=== PATIENT | male | born 1975 | race Caucasian/White ===

== ENCOUNTER 2017-09-11 19:59 | Emergency (ER) | payer BC, MEDICAID, OTHER ==
[2017-09-11 23:03] LABS: ABSOLUTE BASOPHILS # (AUTO) 0.1 10^3/uL (0.0-0.2); ABSOLUTE EOSINOPHILS # (AUTO) 0.1 10^3/uL (0.0-0.6); ABSOLUTE LYMPHOCYTES (AUTO) 3.4 10^3/uL (0.5-4.7); ABSOLUTE MONOCYTES (AUTO) 0.9 10^3/uL (0.1-1.4); ABSOLUTE NEUT (AUTO) 5.6 10^3/uL (1.7-8.2); BASOPHILS % (AUTO) 0.8 % (0-2); EOSINOPHILS % (AUTO) 0.9 % (0-6); HEMATOCRIT 47.5 % (37.9-51.0); HEMOGLOBIN 16.5 g/dL (13.5-17.0); LYMPHOCYTES % (AUTO) 34.2 % (13-45); MEAN CORPUSCULAR HEMOGLOBIN 33.7 pg (27.0-33.4); MEAN CORPUSCULAR HGB CONC 34.9 g/dL (32.0-36.0); MEAN CORPUSCULAR VOLUME 97 fl (80-97); MONOCYTES % (AUTO) 8.8 % (3-13); RED BLOOD COUNT 4.91 10^6/uL (4.35-5.55); RED CELL DISTRIBUTION WIDTH 13.2 % (11.5-14.0); SEGMENTED NEUTROPHILS % (AUTO) 55.3 % (42-78); WHITE BLOOD COUNT 10.1 10^3/uL (4.0-10.5)
[2017-09-11 23:22] LABS: ANION GAP 9 (5-19); BLOOD UREA NITROGEN 17 mg/dL (7-20); CALCIUM 10.1 mg/dL (8.4-10.2); CARBON DIOXIDE 26 mmol/L (22-30); CHLORIDE 107 mmol/L (98-107); CREATININE RESULT 1.01 mg/dL (0.52-1.25); GLUCOSE 94 mg/dL (75-110); POTASSIUM 5.2 mmol/L (3.6-5.0); SODIUM 141.6 mmol/L (137-145)
--- NOTE | 2017-09-11 23:30 | ER Document Report ---
ED General - General Chief Complaint: Hemorrhoids Stated Complaint: BACK PAIN Time Seen by Provider: 09/11/17 21:58 Notes: Patient is a 42-year-old male who presents with complaint of pain in his back. He says he has chronic pain in his back and has a history of lumbar disc issues and sounds as if he has had a vasectomy in the past. He says his back pain is chronic but says he says it notices worse since he recently had multiple hemorrhoids lasered. He sees Dr. Dwight Jimenez Says he had hemorrhoids lasered last week. Sorry start noticing bleeding and start having cramping going into his legs. He says he had his usual chronic back pain but is concerned because of the cramping onto his legs. He went back to the office Sunday and talk to the clinical secretary for the officer said that she would pass on his concerns to Dr. Ledbetter. Says is not yet heard back in today when he was having a bowel movement he noticed something protruding from his rectum that he had to push back. He therefore came to the ER. He has no other complaints at this time. He does have a history of previous sigmoidoscopy was just showed multiple hemorrhoids. He said this was approximately year ago. No recent sigmoidoscopies or colonoscopies in the last month. TRAVEL OUTSIDE OF THE [place] IN LAST 30 DAYS: No Past Medical History - Social History Smoking Status: Unknown if Ever Smoked Frequency of alcohol use: None Drug Abuse: None Family History: Reviewed & Not Pertinent Review of Systems - Review of Systems Notes: My Normal Review Basic REVIEW OF SYSTEMS: CONSTITUTIONAL : Denies fever, chills, or sweats. Denies recent illness. EENT: Denies eye, ear, throat, or mouth pain or symptoms. Denies nasal or sinus congestion. CARDIOVASCULAR: Denies chest pain. RESPIRATORY: Denies cough, cold, or chest congestion. Denies shortness of breath, difficulty breathing, or wheezing. GASTROINTESTINAL: Denies abdominal pain. Denies nausea, vomiting, or diarrhea. Denies constipation. Last BM: Rectal: Recurrent hemorrhoids. MUSCULOSKELETAL: Back pain. Muscle cramps into the legs. SKIN: Denies rash or skin lesions. NEUROLOGICAL: Denies altered mental status or loss of consciousness. Denies headache. Denies weakness or paralysis or loss of use of either side. Denies problems with gait or speech. Denies sensory or motor loss. ALL OTHER SYSTEMS REVIEWED AND NEGATIVE. Physical Exam - Vital signs Vitals: Temp Pulse Resp BP Pulse Ox 98.5 F 83 16 120/80 96 09/11/17 20:30 09/11/17 20:30 09/11/17 20:30 09/11/17 20:30 09/11/17 20:30 - Notes Notes: General Appearance: Well nourished, alert, cooperative, no acute distress, mild obvious discomfort. Vitals: reviewed, See vital signs table. Eyes: PERRL, EOMI, Conjuctiva clear Abdomen: Normal BS, soft, No rigidity, No abdominal tenderness, No guarding, no rebound, Rectal: No external hemorrhoids. On digital rectal exam I do not feel any obvious large internal hemorrhoids. Extremities: strength 5/5 in all extremities, good pulses in all extremities, no swelling or tenderness in the extremities, no edema. Skin: warm, dry, appropriate color, no rash Neuro: speech clear, oriented x 3, normal affect, responds appropriately to questions. Gait is normal without foot drop. Good strength in lower extremities. Course - Re-evaluation Re-evalutation: 09/12/17 00:05 Patient is well-appearing. There is a history of chronic back pain. Back pain is very similar his chronic back pain but his only concern was that he was having the cramping into his legs. He says it feels like muscle cramps to both his thighs. I did check his electrolytes which were normal. He has no signs of cauda equina. He is able to walk without difficulty. No loss of bowel control. He is able to urinate. I will rubs some muscle relaxer see if this help. On rectal exam patient has no external hemorrhoids. He has no large internal hemorrhoids on rectal exam however his history suggests he does have internal hemorrhoid. He has been applying Anusol cream however this will not likely help a internal hemorrhoids. He had laser procedure on his hemorrhoids approximately a week ago. [place] safe for him to use rectal suppositories which will be of more help for internal hemorrhoids than the external cream. I prescribed the rectal suppositories but put for the patient stop using them if he does have increasing pain or any bleeding. Patient is to follow-up with Dr. Em this week. Patient to return to ER if he has significant bleeding, worsening pain, or if he feels unwell. Patient agrees with plan will be discharged home. Dictation of this chart was performed using voice recognition software; therefore, there may be some unintended grammatical errors. - Vital Signs Vital signs: Temp Pulse Resp BP Pulse Ox 98.5 F 86 20 116/73 99 09/11/17 20:30 09/11/17 23:19 09/11/17 23:19 09/11/17 23:19 09/11/17 23:19 - Laboratory Result Diagrams: 09/11/17 22:45 09/11/17 22:45 Laboratory results interpreted by me: 09/11/17 09/11/17 22:45 22:45 MCH 33.7 H Potassium 5.2 H Discharge - Discharge Clinical Impression: Leg cramps Hemorrhoids Qualifiers: Hemorrhoid type: unspecified Qualified Code(s): K64.9 - Unspecified hemorrhoids Condition: Good Disposition: HOME, SELF-CARE Additional Instructions: Hemorrhoids You have hemorrhoids. These are formed by enlargement of veins around the anus. The cause is increased pressure in the veins, from or straining at bowel movements. Hemorrhoids often cause itching and bleeding with bowel movements. When a hemorrhoid becomes clotted, severe pain and swelling result. Soothing creams and suppositories are often prescribed. Warm sitz-baths may also decrease pain, swelling, and itching. Eat a high-fiber diet. Stool softeners such as Metamucil will help. Keep the area very clean. Medicated cleansing pads (such as Tucks) are useful after bowel movements. A hose-mounted shower unit (like a shower massager at low water pressure) can be used to clean around tender hemorrhoid tags. You should call the doctor or return if you develop fever, increasing pain , or an enlarging mass around the anus, or if you simply fail to improve with treatment. Please take the medicines as prescribed. PLease sop using the suppositories if you haave increased pain or any bleeding after using. Please follow up with Dr. Ledbetter for reevaluation. Please return to the ER immedaitely if you have recurrent bleeding, feel as if something in you rectum is prolapsed and will not reduce, leg weakness and numbness, loss of control of your bowel funciton, or have the inability to urinate. The prescribed muscle relaxer may make you sleepy so do not drive after taking them. Prescriptions: Hydrocortisone Acetate [Anusol Hc 25 mg Supp.rect] 1 supp.rect [place] BID #14 supp.rect Metaxalone [Skelaxin 800 mg Tablet] 800 mg PO ASDIR PRN #20 tablet PRN Reason: Forms: Return to Work Referrals: RIGO LEDBETTER MD [ACTIVE STAFF] - 09/13/17
[2017-09-12 00:57] VITALS: BP 121/89
== END 2017-09-12 00:50 | disposition home or self-care (01) ==
LOC: ER 19:59
DX: R25.2 Cramp and spasm (principal); K64.9 Unspecified hemorrhoids
CPT/HCPCS: 36415; 80048; 83735; 85025; 99283

== ENCOUNTER 2019-04-06 16:05 | Emergency (ER) | payer BC ==
[2019-04-06 16:31] VITALS: BP 102/79
--- NOTE | 2019-04-06 17:06 | ER Document Report ---
ED Medical Screen (RME) - General Chief Complaint: Leg Swelling Stated Complaint: LEFT LEG PAIN, SWELLING Time Seen by Provider: 04/06/19 16:58 Mode of Arrival: Wheelchair Information source: Patient Notes: Patient presents emergency department with left leg pain and swelling. Reports this started approximately 3:00 this morning. Patient gives history of recent back surgery on the . He contacted his surgeon who advised he should get a Doppler and x-ray. Patient reports he is not taking any anticoagulants. Reports no recent trips. Reports he did trip over something yesterday. Denies fever vomiting diarrhea. No obvious swelling to the left leg, erythema noted noted surgical site is benign looking. I have greeted and performed a rapid initial assessment of this patient. A comprehensive ED assessment and evaluation of the patient, analysis of test results and completion of the medical decision making process will be conducted by additional ED providers. Dictation of this chart was performed using voice recognition software; therefore, there may be some unintended grammatical errors. TRAVEL OUTSIDE OF THE [place] IN LAST 30 DAYS: No - Related Data Allergies/Adverse Reactions: No Known Allergies Allergy (Verified 04/06/19 16:08) Past Medical History - Social History Chew tobacco use (# tins/day): No Frequency of alcohol use: None Drug Abuse: None - Past Medical History Cardiac Medical History: Reports: Hx Hypercholesterolemia Renal/ Medical History: Denies: Hx Peritoneal Dialysis GI Medical History: Reports: Hx Gastroesophageal Reflux Disease Past Surgical History: Reports: Hx Oral Surgery - wisdom, Hx Orthopedic Surgery - BACK Physical Exam - Vital signs Vitals: Temp Pulse Resp BP Pulse Ox 98.1 F 102 H 18 102/79 97 04/06/19 16:29 04/06/19 16:29 04/06/19 16:29 04/06/19 16:29 04/06/19 16:29 Course - Vital Signs Vital signs: Temp Pulse Resp BP Pulse Ox 98.1 F 102 H 18 102/79 97 04/06/19 16:29 04/06/19 16:29 04/06/19 16:29 04/06/19 16:29 04/06/19 16:29
--- NOTE | 2019-04-06 17:38 | RADIOLOGY REPORT (SQ) ---
EXAM DESCRIPTION: L SPINE WHOLE COMPLETED DATE/TIME: 04/06/2019 5:27 pm REASON FOR STUDY: recent surgery, no having pain COMPARISON: None. NUMBER OF VIEWS: Five views including obliques. TECHNIQUE: AP, lateral, oblique, and sacral radiographic images acquired of the lumbar spine. LIMITATIONS: None. FINDINGS: MINERALIZATION: Normal. SEGMENTATION: Normal. No transitional anatomy. ALIGNMENT: Normal. VERTEBRAE: Maintained height. No fracture or worrisome bone lesion. DISCS: Preserved height of nonsurgical levels. Small anterior marginal osteophytes. POSTERIOR ELEMENTS: Pedicles and facets are intact. No pars defect or posterior arch defects. HARDWARE: Postsurgical changes L4-5 and L5-S1 posterior fusion with intact transpedicular screws and spanning rods. No interbody spacer subsidence. PARASPINAL SOFT TISSUES: Normal. PELVIS: Intact as visualized. No fractures or worrisome bone lesions. SI joints intact. OTHER: No other significant finding. IMPRESSION: POSTSURGICAL CHANGES L4-5 AND L5-S1 FUSION WITHOUT EVIDENCE OF HARDWARE COMPLICATION, OR OTHER ACUTE OSSEOUS FINDINGS. TECHNICAL DOCUMENTATION: JOB ID: [id number]- All Rights Reserved Reading location - IP/workstation name: [email or web address]
[2019-04-06 18:06] LABS: ABSOLUTE EOSINOPHILS # (AUTO) 0.2 10^3/uL (0.0-0.6); ABSOLUTE MONOCYTES (AUTO) 0.9 10^3/uL (0.1-1.4); ABSOLUTE NEUT (AUTO) 6.8 10^3/uL (1.7-8.2); BASOPHILS % (AUTO) 0.2 % (0-2); EOSINOPHILS % (AUTO) 1.7 % (0-6); HEMATOCRIT 44.7 % (37.9-51.0); HEMOGLOBIN 15.6 g/dL (13.5-17.0); LYMPHOCYTES % (AUTO) 27.5 % (13-45); MEAN CORPUSCULAR HEMOGLOBIN 32.6 pg (27.0-33.4); MEAN CORPUSCULAR HGB CONC 34.8 g/dL (32.0-36.0); MEAN CORPUSCULAR VOLUME 94 fl (80-97); MONOCYTES % (AUTO) 8.5 % (3-13); PLATELET COUNT 490 10^3/uL (150-450); RED BLOOD COUNT 4.78 10^6/uL (4.35-5.55); RED CELL DISTRIBUTION WIDTH 13.1 % (11.5-14.0); SEGMENTED NEUTROPHILS % (AUTO) 62.1 % (42-78); TOTAL CELLS COUNTED % (AUTO) 100 %; WHITE BLOOD COUNT 10.9 10^3/uL (4.0-10.5)
[2019-04-06 18:13] LABS: INTERNATIONAL RATION (INR) 0.92; PROTHROMBIN TIME 12.4 SEC (11.4-15.4)
[2019-04-06 18:26] LABS: ALANINE AMINOTRANSFERASE 30 U/L (21-72); ALBUMIN 4.3 g/dL (3.5-5.0); ALKALINE PHOSPHATASE 92 U/L (38-126); ANION GAP 9 (5-19); ASPARTATE AMINO TRANSFERASE 25 U/L (17-59); BILIRUBIN,DIRECT 0.2 mg/dL (0.0-0.4); BILIRUBIN,TOTAL 0.3 mg/dL (0.2-1.3); BLOOD UREA NITROGEN 15 mg/dL (7-20); CALCIUM 9.7 mg/dL (8.4-10.2); CARBON DIOXIDE 26 mmol/L (22-30); CHLORIDE 104 mmol/L (98-107); GLUCOSE 91 mg/dL (75-110); POTASSIUM 4.5 mmol/L (3.6-5.0); SODIUM 139.3 mmol/L (137-145); TOTAL PROTEIN 7.5 g/dL (6.3-8.2)
[2019-04-06] MEDS ORDERED: HYDROMORPHONE HCL INJ/PF 2 MG/ML AMPULE IV ONE (18:43)
[2019-04-06] MEDS ORDERED: ONDANSETRON HCL INJ/PF 4 MG/2 ML SDV IV ONE (18:44)
--- NOTE | 2019-04-06 18:52 | ER Document Report ---
ED General - General Chief Complaint: Leg Swelling Stated Complaint: LEFT LEG PAIN, SWELLING Time Seen by Provider: 04/06/19 16:58 Mode of Arrival: Wheelchair Notes: Patient presents emergency department with left leg pain and swelling. Reports this started approximately 3:00 this morning. Patient gives history of recent back surgery on the . He contacted his surgeon who advised he should get a Doppler and x-ray. Patient reports he is not taking any anticoagulants. Reports no recent trips. Reports he did trip over something yesterday. Denies fever vomiting diarrhea. No obvious swelling to the left leg, erythema noted noted surgical site is benign looking. TRAVEL OUTSIDE OF THE [place] IN LAST 30 DAYS: No - HPI Onset: This morning Onset/Duration: Sudden Quality of pain: Burning, Throbbing Severity: Moderate Associated symptoms: denies: Chest pain, Productive cough, Fever, Leg swelling, Nausea, Vomiting, Shortness of breath, Sweating, Weakness Exacerbated by: Sitting Relieved by: Other - Walking Similar symptoms previously: No Recently seen / treated by doctor: Yes - Related Data Allergies/Adverse Reactions: No Known Allergies Allergy (Verified 04/06/19 16:08) Past Medical History - General Information source: Patient - Social History Smoking Status: Current Every Day Smoker Cigarette use (# per day): Yes - 5 Chew tobacco use (# tins/day): No Smoking Education Provided: Yes - smoking cessation counseling was provided for 4 minutes at the bedside Frequency of alcohol use: None Drug Abuse: None Lives with: Family Family History: Reviewed & Not Pertinent Patient has suicidal ideation: No Patient has homicidal ideation: No - Past Medical History Cardiac Medical History: Reports: Hx Hypercholesterolemia Renal/ Medical History: Denies: Hx Peritoneal Dialysis GI Medical History: Reports: Hx Gastroesophageal Reflux Disease Past Surgical History: Reports: Hx Oral Surgery - wisdom, Hx Orthopedic Surgery - BACK Review of Systems - Review of Systems Notes: REVIEW OF SYSTEMS: CONSTITUTIONAL : Denies fever, chills, or sweats. Denies recent illness. Denies weight loss, recent hospitalizations. EENT: Denies visual changes, eye pain. Denies sore throat, oral lesions, difficulty swallowing. CARDIOVASCULAR: Denies chest pain. Denies palpitations. Denies lower extremity edema. RESPIRATORY: Denies cough. Denies shortness of breath, wheezing. GASTROINTESTINAL: Denies abdominal pain or distention. Denies nausea, vomiting, or diarrhea. Denies blood in vomitus, stools, or per rectum. Denies black, tarry stools. Denies constipation. GENITOURINARY: Denies difficulty urinating, painful urination, frequency, blood in urine, testicular pain or penile discharge. MUSCULOSKELETAL: Denies back or neck pain or stiffness. Denies joint pain or swelling. SKIN: Denies rash, lesions or sores. HEMATOLOGIC : Denies easy bruising or bleeding. LYMPHATIC: Denies swollen glands. NEUROLOGICAL: Denies confusion or altered mental status. Denies loss of consciousness. Denies dizziness or lightheadedness. Denies headache. Denies weakness or paralysis. Denies problems difficulty with ambulation, slurred speech. Denies sensory loss, numbness, or tingling. Denies seizures. PSYCHIATRIC: Denies anxiety or stress. Denies depression, suicidal ideation, or Physical Exam - Vital signs Vitals: Temp Pulse Resp BP Pulse Ox 98.1 F 102 H 18 102/79 97 04/06/19 16:29 04/06/19 16:29 04/06/19 16:29 04/06/19 16:29 04/06/19 16:29 - Notes Notes: PHYSICAL EXAMINATION: GENERAL: Well-appearing, well-nourished and in no acute distress. HEAD: Atraumatic, normocephalic. EYES: Pupils equal round and reactive to light, extraocular movements intact, sclera anicteric, conjunctiva are normal. ENT: Nares patent, oropharynx clear without exudates. Moist mucous membranes. NECK: Normal range of motion, supple without lymphadenopathy LUNGS: Breath sounds clear to auscultation bilaterally and equal. No wheezes rales or rhonchi. HEART: Regular rate and rhythm without murmurs ABDOMEN: Soft, nontender, nondistended abdomen. No guarding, no rebound. No masses appreciated. Musculoskeletal: Normal range of motion, no pitting or edema. No cyanosis. Surgical scar of the lumbar spine clean, dry, intact. NEUROLOGICAL: Cranial nerves grossly intact. Normal speech, normal gait. Normal sensory, motor exams PSYCH: Normal mood, normal affect. SKIN: Warm, Dry, normal turgor, no rashes or lesions noted. Course - Re-evaluation Re-evalutation: 04/08/19 11:04 Laboratory 04/06/19 04/06/19 04/06/19 17:32 17:55 17:55 WBC 10.9 H RBC 4.78 Hgb 15.6 Hct 44.7 MCV 94 MCH 32.6 MCHC 34.8 RDW 13.1 Plt Count 490 H Seg Neutrophils % 62.1 Lymphocytes % 27.5 Monocytes % 8.5 Eosinophils % 1.7 Basophils % 0.2 Absolute Neutrophils 6.8 Absolute Lymphocytes 3.0 Absolute Monocytes 0.9 Absolute Eosinophils 0.2 Absolute Basophils 0.0 PT 12.4 INR 0.92 APTT 32.0 Sodium Potassium Chloride Carbon Dioxide Anion Gap BUN Creatinine Est GFR ( Amer) Est GFR (Non-Af Amer) Glucose Calcium Total Bilirubin Direct Bilirubin Neonat Total Bilirubin Neonat Direct Bilirubin Neonat Indirect Bili AST ALT Alkaline Phosphatase Total Protein Albumin Urine Color YELLOW Urine Appearance CLEAR Urine pH 9.0 Ur Specific [place] 1.008 Urine Protein NEGATIVE Urine Glucose (UA) NEGATIVE Urine Ketones NEGATIVE Urine Blood NEGATIVE Urine Nitrite NEGATIVE Urine Bilirubin NEGATIVE Urine Urobilinogen NEGATIVE Ur Leukocyte Esterase NEGATIVE Urine WBC (Auto) 0 Urine RBC (Auto) 1 Squamous Epi Cells Auto <1 Urine Mucus (Auto) RARE Urine Ascorbic Acid NEGATIVE 04/06/19 17:55 WBC RBC Hgb Hct MCV MCH MCHC RDW Plt Count Seg Neutrophils % Lymphocytes % Monocytes % Eosinophils % Basophils % Absolute Neutrophils Absolute Lymphocytes Absolute Monocytes Absolute Eosinophils Absolute Basophils PT INR APTT Sodium 139.3 Potassium 4.5 Chloride 104 Carbon Dioxide 26 Anion Gap 9 BUN 15 Creatinine 0.86 Est GFR ( Amer) > 60 Est GFR (Non-Af Amer) > 60 Glucose 91 Calcium 9.7 Total Bilirubin 0.3 Direct Bilirubin 0.2 Neonat Total Bilirubin Not Reportable Neonat Direct Bilirubin Not Reportable Neonat Indirect Bili Not Reportable AST 25 ALT 30 Alkaline Phosphatase 92 Total Protein 7.5 Albumin 4.3 Urine Color Urine Appearance Urine pH Ur Specific [place] Urine Protein Urine Glucose (UA) Urine Ketones Urine Blood Urine Nitrite Urine Bilirubin Urine Urobilinogen Ur Leukocyte Esterase Urine WBC (Auto) Urine RBC (Auto) Squamous Epi Cells Auto Urine Mucus (Auto) Urine Ascorbic Acid Lumbar Spine X-Ray 04/06/19 17:04 IMPRESSION: POSTSURGICAL CHANGES L4-5 AND L5-S1 FUSION WITHOUT EVIDENCE OF HARDWARE COMPLICATION, OR OTHER ACUTE OSSEOUS FINDINGS. Temp Pulse Resp BP Pulse Ox 98.1 F 102 H 18 102/79 97 04/06/19 16:29 04/06/19 16:29 04/06/19 16:29 04/06/19 16:29 04/06/19 16:29 04/08/19 11:05 43-year-old male presents with left hamstring pain that started upon awakening this morning. Vital signs reviewed within normal limits. Because of the patient's recent lumbar fusion his orthopedic surgeon asked him to present to the emergency department and be assessed for DVT and hardware malfunction. Doppler was negative for DVT and x-ray of the lumbar spine showed no evidence of hardware complication. Patient was provided Dilaudid for pain and discharged home in stable condition. Patient was evaluated and treated as appropriate for the patient's presenting symptoms and complaint, with consideration of any critical or life threatening conditions that may be associated with their obtained history and exam as noted above. All results were discussed with patient. Patient provided the opportunity to ask questions, and express concerns. Patient was educated on treatments based on their presumed diagnosis as noted above. At this time we will discharge the patient with return precautions and follow-up recommendations. Verbal discharge instructions given a the bedside. Medication warnings reviewed. Patient is in agreement with this plan and has verbalized understanding of return precautions. After careful consideration I feel that that patient can be safely discharged from the emergency department, they were advised to followup with a primary care physician in 2-3 days. Dictation on this chart was performed using voice recognition software and may result in unintended grammatical, spelling, syntax or errors. - Vital Signs Vital signs: Temp Pulse Resp BP Pulse Ox 98.1 F 102 H 18 102/79 97 04/06/19 16:29 04/06/19 16:29 04/06/19 16:29 04/06/19 16:29 04/06/19 16:29 - Laboratory Result Diagrams: 04/06/19 17:55 04/06/19 17:55 Laboratory results interpreted by me: 04/06/19 17:55 WBC 10.9 H Plt Count 490 H - Diagnostic Test Radiology reviewed: Image reviewed, Reports reviewed Discharge - Discharge Clinical Impression: Hamstring muscle strain Qualifiers: Encounter type: initial encounter Laterality: left Qualified Code(s): S76.312A - Strain of muscle, fascia and tendon of the posterior muscle group at thigh level, left thigh, initial encounter Leg pain, posterior Qualifiers: Laterality: left Qualified Code(s): M79.605 - Pain in left leg Condition: Good Disposition: HOME, SELF-CARE Instructions: Muscle Strain (OM) Additional Instructions: Please call your orthopedic surgeon tomorrow for a sooner follow-up. Follow up with your [id number] hours for further care or return to the ED IMMEDIATELY if symptoms worsen or you have any concerns. If you cannot afford to follow up with your primary care physician a list of low cost clinics have been provided at the end of your discharge papers as well. Most prescribed medications have multiple side effects. The safest thing to do is when filling your prescription speak to your pharmacist regarding possible interactions with your normal home medications and over the counter medications such as Ibuprofen, Tylenol, Benadryl. If you experience any symptoms that cause you discomfort or concern you should discontinue the medication immediately and return to the emergency room or call your primary care physician.
[2019-04-06 20:01] LABS: APPEARANCE,URINE CLEAR; BILIRUBIN,URINE NEGATIVE (NEGATIVE); COLOR,URINE YELLOW; GLUCOSE, URINE NEGATIVE (NEGATIVE); KETONES,URINE NEGATIVE (NEGATIVE); LEUKOCYTE ESTERASE,URINE NEGATIVE (NEGATIVE); NITRITE,URINE NEGATIVE (NEGATIVE); PROTEIN,URINE NEGATIVE (NEGATIVE); URINE SPECIFIC GRAVITY 1.008; UROBILINOGEN,URINE NEGATIVE mg/dL (<2.0)
--- NOTE | 2019-04-07 09:24 | XCELERA REPORT ---
[address] [place] [facility] [address] Lower Extremity Venous Evaluation Procedure: Color flow and duplex imaging of the veins of the left lower extremity as well as the right Common Femoral vein. Right Sided Venous Evaluation The right common femoral vein is fully compressible. Spontaneous and phasic flow is present in the right common femoral vein. Left Sided Venous Evaluation Normal vessel filling wall to wall, compression and augmentation as well as Colour flow down to the infrageniculate veins. Interpretation Summary No duplex evidence of DVT or obstruction in the left lower extremity nor in the right Common Femoral vein. Name: GEMINI BABB Age: 43 yrs Gender: Male : 1975 Patient Status: Emergency Patient Location: ER Study Date: 04/06/2019 06:15 PM Reason For Study: left leg pain and swelling, recent surgery Ordering Physician: ISMAEL LORD Performed By: Ke Hicks : ISMAEL LORD > Ronan To
== END 2019-04-06 20:03 | disposition home or self-care (01) ==
LOC: ER 16:05
DX: S76.812A Strain of other specified muscles, fascia and tendons at thigh level, left thigh, initial encounter (principal); M79.605 Pain in left leg; M79.89 Other specified soft tissue disorders; X58.XXXA Exposure to other specified factors, initial encounter; F17.210 Nicotine dependence, cigarettes, uncomplicated
CPT/HCPCS: 99406; 99284; 96374; 96375; 36415; 85025; 85610; 85730; 80053; 81001; 93971 ×2; 72110; J1170; J2405